=== PATIENT | female | born 1970 | race Caucasian/White ===

== ENCOUNTER 2016-09-02 19:25 | Emergency (ER) | payer SELFPAY ==
[~2016-09-02] VITALS: Ht 175.3 cm; Wt 63.5 kg
[2016-09-02 19:36] VITALS: BP 120/67
--- NOTE | 2016-09-02 19:40 | Emergency Room Report ---
History of Present Illness General Chief Complaint: Upper Extremity Injury Source: Patient (Maribeth Lau) Present Illness HPI 46 YO Female presents to the ED c/o pain, swelling, and erythema of the left thumb pt. states progressive swelling and erythema x 1 week, however severe 10/ 10 pain x 1 hour. sharp, localized, exacerbated upon palpation. Pt is right hand dominant. Denies lesions, hangnail, trauma to the finger. denies n/v/f/c. pt. has hx. of Arvind's. Denies numbness tingling or loss of sensation or gross motor movements of the extremities, incontinence of bowel or bladder. Denies CP, Palpitations, LOC, AMS, dizziness, Changes in Vision, Sensation, paresthesias, or a sudden severe headache. (Maribeth Lau) Allergies: Coded Allergies: No Known Allergies (Unverified , 09/02/16) Patient History Past Medical History: see triage record Past Surgical History: none Pertinent Family History: none Last Menstrual Period: AUGUST 16 Immunizations: UTD Reviewed Nursing Documentation: PMH: Agreed, PSxH: Agreed (Maribeth Lau) Review of Systems All Other Systems: negative except mentioned in HPI (Maribeth Lau) Physical Exam Vital Signs Date Time Temp Pulse Resp B/P Pulse Ox O2 Delivery O2 Flow Rate FiO2 09/02/16 19:28 98.2 74 18 120/67 97 Room Air Sp02 EP Interpretation: reviewed, normal General Appearance: no apparent distress, alert, GCS 15, non-toxic Head: normocephalic, atraumatic Eyes: bilateral eye PERRL, bilateral eye normal inspection ENT: hearing grossly normal, normal pharynx, no angioedema, normal voice Neck: full range of motion, supple/symm/no masses Respiratory: lungs clear, normal breath sounds, speaking full sentences Cardiovascular #1: regular rate, rhythm, no edema Cardiovascular #2: 2+ radial (R) Genitourinary: normal inspection Musculoskeletal: back normal, gait/station normal, normal range of motion, tender - ttp to the lateral left thumb and finger pad of the left thumb. swelling noted. Neurologic: alert, oriented x3, responsive, motor strength/tone normal, sensory intact, speech normal Psychiatric: judgement/insight normal, memory normal, mood/affect normal Skin: normal color, no rash, warm/dry, well hydrated, other - swelling, erythema, and tenderness, no fluctuance to the lateral aspect and finger pad of the left thumb. no streaking noted. (Maribeth Lau) Procedures Incision and Drainage Incision and Drainage : Consent: Verbal Site: right thumb cuticle line Blade Size: 11 I & D Procedure: betadine prep Wound Location: upper extremity - right thumb Wound's Depth, Shape: linear Wound Length (cm): 1 Wound Explored: clean Anesthesia: 1% Lidocaine - digital block Volume Anesthetic (ccs): 5 Splint Applied?: No Sling Applied?: No Patient Tolerated: Well Complications: None (Maribeth Lau) Medical Decision Making PA Attestation Dr. Lynne is my supervising Physician whom patient management has been discussed with. (Maribeth Lau) Diagnostic Impression: Primary Impression: Paronychia of left thumb Additional Impression: Felon of finger of right hand ER Course Pt. presents to the ED c/o pain, swelling, and erythema of the left thumb pt. states progressive swelling and erythema x 1 week, however severe 10/10 pain x 1 hour. sharp, localized, exacerbated upon palpation. Ddx considered but are not limited to cellulitis, paronychia, eponychia, ingrown toe nail, fracture, d/L, gout Vital signs: are WNL, pt. is afebrile H&PE are most consistent with paronychia of the left thumb which is progressing towards the finger pad. ORDERS: none required at this time, the diagnosis is clinical ED INTERVENTIONS: -[place] PO -Doxy PO - verbal consent was received . - lesion was cleaned with Betadine prep. - digital block using 5ml Lidocaine 1% - Small incision using a sterile 11. blade scalpel to drain the paronychia and into the felon area . pt. tolerated well without complication. - bacitracin and sterile dressing was applied by RN. - will d/c pt. with PO abx. DISCHARGE: At this time pt. is stable for d/c to home. Will provide printed patient care instructions, and any necessary prescriptions. Care plan and follow up instructions have been discussed with the patient prior to discharge. (Maribeth Lau) ER Course I saw this patient with a PA. There is no evidence of any pus. She felt better now. We'll discharge him. (CLINT LYNNE M.D.) Last Vital Signs Date Time Temp Pulse Resp B/P Pulse Ox O2 Delivery O2 Flow Rate FiO2 09/02/16 19:28 98.2 74 18 120/67 97 Room Air (Maribeth Lau) Disposition: HOME, SELF-CARE Condition: Stable Scripts Hydrocodone Bit/Acetaminophen 5-325* (NORCO 5-325*) 1 Each Tablet 1 TAB ORAL Q6H Y for For Pain, #3 TAB 0 Refills Prov: Maribeth Lau 09/02/16 Ibuprofen* (MOTRIN*) 600 Mg Tablet 600 MG ORAL THREE TIMES A DAY, #20 TAB 0 Refills Prov: Maribeth Lau 09/02/16 Doxycycline Hyclate* (VIBRAMYCIN*) 100 Mg Capsule 100 MG ORAL EVERY 12 HOURS for 7 Days, #14 CAP 0 Refills Prov: Maribeth Lau 09/02/16 Patient Instructions: Fingertip Infection Additional Instructions: Take medications as directed. Follow up with a Primary Care Provider in 3-5 days, even if your symptoms have resolved. --Please review list of primary care clinics, if you do not already have a primary care provider Return sooner to ED if new symptoms occur, or current symptoms become worse. Do not drink alcohol, drive, or operate heavy machinery while taking [place] as this may cause drowsiness. - Please note that this Emergency Department Report was dictated using [employer] location manager technology software, occasionally this can lead to erroneous entry secondary to interpretation by the dictation equipment. Maribeth Lau Sep 02, 2016 19:40 CLINT LYNNE M.D. Sep 02, 2016 23:09
[2016-09-02] MEDS ORDERED: Lidocaine 1% MPF 10mg/ml 5ml IM ONE (19:45)
[2016-09-02] MEDS ORDERED: Norco 5mg/325mg tab ORAL ONE (19:45)
[2016-09-02] MEDS ORDERED: NORCO 5-325 TA1 EACH ORAL (19:52)
[2016-09-02] MEDS ORDERED: VIBRAMYCIN100 MG ORAL (19:52)
[2016-09-02] MEDS ORDERED: IBUPROFEN600 MG ORAL (19:52)
[2016-09-02] MEDS ORDERED: Bacitracin Oint UD TOPIC ONE (20:15)
== END 2016-09-02 21:07 | disposition home or self-care (01) ==
LOC: EMR 21:06
DX: L03.012 Cellulitis of left finger (principal)
CPT/HCPCS: 10060; 96372